=== PATIENT | female | born 1995 | race American Indian/Alaskan Native ===

== ENCOUNTER 2019-10-02 05:41 | Emergency (ER) | payer BC ==
[2019-10-02 06:09] VITALS: BP 122/73
--- NOTE | 2019-10-02 08:58 | Emergency Department Report ---
ED Female HPI - General Chief complaint: Urogenital-Female Stated complaint: VAGINAL IRRITATION Time Seen by Provider: 10/02/19 08:20 Source: patient Mode of arrival: Ambulatory Limitations: No Limitations - History of Present Illness Initial comments: 24-year-old female complaining of urinary frequency and urgency and vaginal irritation 2 days. Her last menstrual period was on 09/05/2019. She denies any painful urination she denies abdominal pain she has no fever no shortness of breath. -: days(s) (2) Severity: moderate Improves with: none Associated Symptoms: denies: vaginal bleeding, abdominal pain, nausea/vomiting, fever/chills, headaches, loss of appetite, dysuria, hematuria, rash - Related Data Sexually active: Yes : 2 Para: 2 A: 0 Allergies Allergy/AdvReac Type Severity Reaction Status Date / Time No Known Allergies Allergy Unverified 11/01/15 13:13 ED Review of Systems ROS: Stated complaint: VAGINAL IRRITATION Other details as noted in HPI Comment: All other systems reviewed and negative Constitutional: no symptoms reported. denies: chills, malaise ENT: denies: throat pain Respiratory: denies: cough Cardiovascular: denies: chest pain, dyspnea on exertion Gastrointestinal: denies: abdominal pain, nausea, vomiting, diarrhea, constipation, hematemesis Genitourinary: urgency, frequency. denies: dysuria, hematuria Skin: other (lump to right back). denies: rash Neurological: denies: numbness Psychiatric: denies: anxiety, depression ED Past Medical Hx - Past Medical History Previous Medical History?: No - Surgical History Past Surgical History?: No - Social History Smoking Status: Never Smoker Substance Use Type: None ED Physical Exam - General Limitations: No Limitations General appearance: alert, in no apparent distress - Head Head exam: Present: atraumatic - Eye Eye exam: Present: normal appearance. Absent: scleral icterus - ENT ENT exam: Present: normal exam, mucous membranes moist - Neck Neck exam: Present: normal inspection, full ROM - Respiratory Respiratory exam: Present: normal lung sounds bilaterally. Absent: respiratory distress, wheezes, rales - Cardiovascular Cardiovascular Exam: Present: regular rate, normal heart sounds - GI/Abdominal GI/Abdominal exam: Present: soft, tenderness (suprpubic tenderness). Absent: distended, guarding - Back Exam Back exam: Present: other (large right upper back mass that appears to be a lipoma. Mobile non-tender) - Neurological Exam Neurological exam: Present: alert - Psychiatric Psychiatric exam: Present: normal affect - Skin Skin exam: Present: warm, dry, intact, normal color. Absent: rash ED Course Vital Signs 10/02/19 05:54 Temperature 98.9 F Pulse Rate 66 Respiratory 18 Rate Blood Pressure 122/73 O2 Sat by Pulse 99 Oximetry ED Medical Decision Making - Medical Decision Making 899 Notified that patient eloped. Critical Care Time: No Critical care attestation.: If time is entered above; I have spent that time in minutes in the direct care of this critically ill patient, excluding procedure time. ED Disposition Disposition: ELOPED Is pt being admited?: No Does the pt Need Aspirin: No Condition: Stable Referrals: PRIMARY CARE, [Primary Care Provider] - 3-5 Days
== END 2019-10-02 09:33 | disposition left against medical advice (07) ==
LOC: ED 05:41
DX: R35.0 Frequency of micturition (principal); N89.8 Other specified noninflammatory disorders of vagina; R39.15 Urgency of urination; R19.05 Periumbilic swelling, mass or lump
CPT/HCPCS: 99281